=== PATIENT | male | born 1960 | race Caucasian/White ===

== ENCOUNTER 2018-01-29 08:00 | Outpatient (CLI) | payer BC ==
[2018-01-29 12:23] LABS: BASOPHILS # (AUTO) 0.1 10^3/uL (0.0-0.1); BASOPHILS % (AUTO) 1.1 %; EOSINOPHILS # (AUTO) 0.3 10^3/uL (0.0-0.7); EOSINOPHILS % (AUTO) 5.8 %; HGB - HEMOGLOBIN 15.2 g/dL (14.0-18.0); LYMPHOCYTES # (AUTO) 1.3 10^3/uL (1.5-3.5); LYMPHOCYTES % (AUTO) 21.6 %; MEAN CORPUSCULAR HEMOGLOBIN 32.2 pg (27.0-31.0); MEAN CORPUSCULAR HGB CONC 34.9 g/dL (32.0-36.0); MEAN CORPUSCULAR VOLUME 92.2 fL (80.0-94.0); MEAN PLATELET VOLUME 8.5 fL (7.4-11.4); MONOCYTES # (AUTO) 0.4 10^3/uL (0.0-1.0); NEUTROPHILS # (AUTO) 3.8 10^3/uL (1.5-6.6); NEUTROPHILS % (AUTO) 64.5 %; PLT - PLATELET COUNT 172 10^3/uL (130-450); RED CELL DISTRIBUTION WIDTH 13.3 % (12.0-15.0); WHITE BLOOD COUNT 5.9 x10^3/uL (4.8-10.8)
[2018-01-29 12:46] LABS: CRP - C-REACTIVE PROTEIN < 1.0 mg/dL (0-1.0); URIC ACID 5.8 mg/dL (2.6-7.2)
[2018-01-29 13:24] LABS: RHEUMATOID FACTOR NEGATIVE (Negative)
[2018-01-31 18:17] LABS: ANA SCREEN POSITIVE (NEGATIVE)
== END 2018-01-29 08:01 ==
LOC: LAB.WCP 08:00
PROVIDERS: ATTEND Orthopaedic Surgery
DX: M17.0 Bilateral primary osteoarthritis of knee (principal); M25.561 Pain in right knee
CPT/HCPCS: 36415; 84550; 85025; 85651; 86038; 86140; 86430

== ENCOUNTER 2018-04-11 09:40 | Outpatient (CLI) | payer BC ==
[2018-04-11 12:33] LABS: EOSINOPHILS # (AUTO) 0.3 10^3/uL (0.0-0.7); EOSINOPHILS % (AUTO) 7.2 %; HGB - HEMOGLOBIN 13.9 g/dL (14.0-18.0); LYMPHOCYTES # (AUTO) 1.4 10^3/uL (1.5-3.5); LYMPHOCYTES % (AUTO) 28.5 %; MEAN CORPUSCULAR HEMOGLOBIN 31.4 pg (27.0-31.0); MEAN CORPUSCULAR HGB CONC 34.2 g/dL (32.0-36.0); MEAN CORPUSCULAR VOLUME 91.6 fL (80.0-94.0); MEAN PLATELET VOLUME 8.6 fL (7.4-11.4); MONOCYTES # (AUTO) 0.4 10^3/uL (0.0-1.0); MONOCYTES % (AUTO) 8.5 %; NEUTROPHILS # (AUTO) 2.6 10^3/uL (1.5-6.6); NEUTROPHILS % (AUTO) 54.8 %; PLT - PLATELET COUNT 169 10^3/uL (130-450); RED BLOOD COUNT 4.44 10^6/uL (4.70-6.10); RED CELL DISTRIBUTION WIDTH 13.7 % (12.0-15.0); WHITE BLOOD COUNT 4.8 x10^3/uL (4.8-10.8)
[2018-04-11 12:53] LABS: ALBUMIN/GLOBULIN RATIO 1.5 (1.0-2.2); ALKALINE PHOSPHATASE 50 IU/L (42-121); ALT ALANINE AMINOTRANSFERASE 23 IU/L (10-60); AST ASPARTATE AMINOTRANSFERASE 26 IU/L (10-42); BILIRUBIN,TOTAL 0.7 mg/dL (0.2-1.0); BUN - BLOOD UREA NITROGEN 21 mg/dL (6-20); CALCIUM 9.3 mg/dL (8.5-10.3); CARBON DIOXIDE - CO2 27 mmol/L (21-32); CHLORIDE 106 mmol/L (101-111); CHOL/HDL RATIO 3.2 (<5.0); CHOLESTEROL 181 mg/dL; CREATININE 0.9 mg/dL (0.6-1.2); GFR - MDRD 88 (>89); GLUCOSE 100 mg/dL (70-100); HDL CHOLESTEROL 57 mg/dL; LDL CHOLESTEROL,CALCULATED 113 mg/dL; SODIUM 139 mmol/L (135-145); TOTAL PROTEIN 6.7 g/dL (6.7-8.2); VLDL CHOLESTEROL 11 mg/dL
== END 2018-04-11 23:59 | disposition home or self-care (01) ==
LOC: LAB.WCP 09:40
PROVIDERS: ATTEND Family Medicine
DX: E78.5 Hyperlipidemia, unspecified (principal); R73.01 Impaired fasting glucose; Z12.5 Encounter for screening for malignant neoplasm of prostate
CPT/HCPCS: 36415; 80053; 80061; 83721; 84153; 84443; 85025

== ENCOUNTER 2019-04-05 08:22 | Outpatient (CLI) | payer BC, OTHER ==
[2019-04-05 13:10] LABS: BASOPHILS % (AUTO) 0.8 %; EOSINOPHILS # (AUTO) 0.2 10^3/uL (0.0-0.7); EOSINOPHILS % (AUTO) 4.6 %; HGB - HEMOGLOBIN 14.4 g/dL (14.0-18.0); LYMPHOCYTES # (AUTO) 1.4 10^3/uL (1.5-3.5); MEAN CORPUSCULAR HEMOGLOBIN 30.3 pg (27.0-31.0); MEAN CORPUSCULAR HGB CONC 33.3 g/dL (32.0-36.0); MEAN PLATELET VOLUME 10.3 fL (7.4-11.4); MONOCYTES # (AUTO) 0.4 10^3/uL (0.0-1.0); MONOCYTES % (AUTO) 8.1 %; NEUTROPHILS # (AUTO) 2.8 10^3/uL (1.5-6.6); NEUTROPHILS % (AUTO) 57.7 %; PLT - PLATELET COUNT 183 10^3/uL (130-450); RED BLOOD COUNT 4.76 10^6/uL (4.70-6.10); RED CELL DISTRIBUTION WIDTH 13.5 % (12.0-15.0); WHITE BLOOD COUNT 4.8 x10^3/uL (4.8-10.8)
[2019-04-05 13:23] LABS: ALBUMIN 4.2 g/dL (3.2-5.5); ALBUMIN/GLOBULIN RATIO 1.4 (1.0-2.2); ALKALINE PHOSPHATASE 41 IU/L (42-121); ALT ALANINE AMINOTRANSFERASE 23 IU/L (10-60); AST ASPARTATE AMINOTRANSFERASE 24 IU/L (10-42); BILIRUBIN,TOTAL 0.6 mg/dL (0.2-1.0); BUN - BLOOD UREA NITROGEN 23 mg/dL (6-20); CALCIUM 9.2 mg/dL (8.5-10.3); CARBON DIOXIDE - CO2 26 mmol/L (21-32); CHLORIDE 105 mmol/L (101-111); CHOLESTEROL 224 mg/dL; GFR - MDRD 77 (>89); GLUCOSE 105 mg/dL (70-100); HDL CHOLESTEROL 56 mg/dL; LDL CHOLESTEROL,CALCULATED 149 mg/dL; LDL/HDL RATIO 2.7 (<3.6); SODIUM 139 mmol/L (135-145); TOTAL PROTEIN 7.2 g/dL (6.7-8.2); VLDL CHOLESTEROL 19 mg/dL
== END 2019-04-05 23:59 | disposition home or self-care (01) ==
LOC: LAB.WCP 08:22
PROVIDERS: ATTEND Family Medicine
DX: Z00.00 Encounter for general adult medical examination without abnormal findings (principal); Z12.5 Encounter for screening for malignant neoplasm of prostate
CPT/HCPCS: 36415; 80053; 80061; 83721; 84153; 84443; 85025

== ENCOUNTER 2019-05-23 14:22 | Outpatient (CLI) | payer BC, OTHER ==
[2019-05-23] MEDS ORDERED: GADOBUTROL 15 MMOL/15 ML VIAL ONE (14:40)
[2019-05-23] MEDS ORDERED: GADOBUTROL 15 MMOL/15 ML VIAL IVP ONE (15:21)
--- NOTE | 2019-05-23 18:02 | MRI Report ---
Reason: DIPLOPIA, MIGRAINE Procedure Date: 05/23/2019 Accession Number: [id number] / [id number] Procedure: MRI - Brain W/WO CPT Code: Preliminary Report FULL RESULT: EXAM: MRI BRAIN WITHOUT AND WITH CONTRAST EXAM DATE: 05/23/2019 03:48 PM. CLINICAL HISTORY: DIPLOPIA, MIGRAINE. COMPARISON: None. TECHNIQUE: Multiplanar, multisequence T1-weighted and fluid-sensitive MR sequences of the brain were performed before and after administration of intravenous contrast. Sequences optimized for routine evaluation. Other: None. IV Contrast: 10.5 cc Gadavist. Findings: Relevant images are indicated (image number, series number). There is no acute/subacute ischemic change in the brain. There is no hemosiderin deposition present in the brain. Limited suprahyoid neck negative. Orbital contents unremarkable. Mild scattered paranasal sinus mucosal thickening. Normal expected vascular flow voids of the major arteries, major draining veins. No significant cortical atrophy. The ventricles are not dilated. There are no suspicious marrow lesions. Trivial scattered few tiny areas of white matter disease are present bilateral wright radiata. Postcontrast imaging demonstrates no abnormal enhancement of the brain, meninges. Pituitary, midbrain, cranial cervical junction, limited upper cervical cord negative. Extraocular muscles, optic nerves, orbital apex, optic chiasm negative. Impressions: 1. No acute/subacute ischemic change. 2. Trivial nonspecific white matter disease present, could be related to history of headaches. 3. Unremarkable orbits. 4. Postcontrast imaging negative. 5. Mild diffuse paranasal sinus mucosal thickening. RADIA
== END 2019-05-23 14:23 | disposition home or self-care (01) ==
LOC: DI 14:22
PROVIDERS: ATTEND Family Medicine
DX: H53.2 Diplopia (principal); G43.909 Migraine, unspecified, not intractable, without status migrainosus; R90.82 White matter disease, unspecified
CPT/HCPCS: 70553; A9585

== ENCOUNTER 2019-06-07 14:30 | Outpatient (CLI) | payer OTHER ==
--- NOTE | 2019-06-09 04:58 | Ultrasound Report ---
Reason: VERTIGO, DIPLOPIA Procedure Date: 06/07/2019 Accession Number: [id number] / [id number] Procedure: US - Carotid Doppler Complete CPT Code: Final Report FULL RESULT: EXAM: BILATERAL CAROTID AND VERTEBRAL ARTERY DUPLEX DOPPLER ULTRASOUND: EXAM DATE: 06/07/2019 06:00 PM CLINICAL HISTORY: Vertigo, diplopia. COMPARISON: None. TECHNIQUE: Grayscale imaging, color Doppler, and duplex spectral Doppler were used to evaluate the carotid and vertebral arteries bilaterally. Static images were obtained. FINDINGS: Irregular calcified carotid plaque is seen bilaterally. There are high bifurcations. Normal antegrade flow is present in bilateral vertebral arteries. VELOCITIES (cm/sec): Right CCA mid: PSV 77.5 cm/sec CCA dist: PSV 52.2 cm/sec ICA prox: PSV 57.1 cm/sec, EDV 16.8 cm/sec ICA mid: PSV 61.0 cm/sec, EDV 24 cm/sec ICA dist: PSV 66 cm/sec, EDV 22 cm/sec ECA: PSV 87.1 cm/sec Vert: PSV 64.2 cm/sec ICA/CCA: 0.8 Left CCA mid: PSV 65.2 cm/sec CCA dist: PSV 66 cm/sec ICA prox: PSV 46 cm/sec, EDV 15 cm/sec ICA mid: PSV 57 cm/sec, EDV 22 cm/sec ICA dist: PSV 59 cm/sec, EDV 21 cm/sec ECA: PSV 70 cm/sec Vert: PSV 61 cm/sec ICA/CCA: 0.9 ICA diameter stenosis: Right: <50% by velocity and <70% by NASCET criteria. Left: <50% by velocity and <70% by NASCET criteria. IMPRESSION: 1. Irregular calcified bilateral carotid artery plaquing. 2. In the right carotid artery there are no elevated carotid artery velocities to suggest hemodynamically significant stenosis. 3. In the left carotid artery there are no elevated carotid artery velocities to suggest hemodynamically significant stenosis. 4. Normal antegrade flow is present in bilateral vertebral arteries. General Recommendations: Stenosis =50% ICA - Follow-up ultrasound 6-12 months Stenosis <50% ICA - High Risk Patient with plaque - Follow-up ultrasound 1-2 years Normal Study but High Risk Patient - Follow-up ultrasound 3-5 years Management recommendations and diagnostic criteria are based on current IAC endorsed standards in Carotid Artery Stenosis: Grayscale and Doppler Ultrasound Diagnosis. Validated velocity measurements with angiographic measurements and velocity criteria are extrapolated from diameter data as defined by the Society of Radiologists in Ultrasound Consensus Conference Radiology 2003; 229;340-346. RADIA
== END 2019-06-07 14:31 | disposition home or self-care (01) ==
LOC: DI 14:30
PROVIDERS: ATTEND Family Medicine
DX: I65.23 Occlusion and stenosis of bilateral carotid arteries (principal); R42 Dizziness and giddiness; H53.2 Diplopia; I77.810 Thoracic aortic ectasia
CPT/HCPCS: 93306; 93880

== ENCOUNTER 2019-08-31 15:02 | Emergency (ER) | payer OTHER ==
[2019-08-31] MEDS ORDERED: CYCLOBENZAPRINE 10 MG TABLET PO STA (16:43)
[2019-08-31] MEDS ORDERED: oxyCODONE 5 MG TABLET PO STA (16:43)
--- NOTE | 2019-08-31 16:45 | ED Physician Documentation ---
History of Present Illness - Stated complaint Stated Complaint: NECK PX/CHILLS/VELEZ - Chief complaint Chief Complaint: General - History obtained from History obtained from: Patient - History of Present Illness Timing: How many weeks ago (1) Pain level max: 8 Pain level now: 8 - Additonal information Additional information: 58-year-old male presents the emergency department stating that he sided neck pain for the past week. Gradually worsening. States feels like a spasm. Worse with movement and better with rest. No fevers. No numbness or tingling. Denies any trauma. Review of Systems Ten Systems: 10 systems reviewed and negative Constitutional: denies: Fever, Chills Cardiac: denies: Chest pain / pressure, Palpitations Respiratory: denies: Dyspnea, Cough GI: denies: Nausea, Vomiting, Diarrhea Musculoskeletal: denies: Back pain Neurologic: denies: Focal weakness, Numbness, Confused, Altered mental status, Head injury, LOC PD PAST MEDICAL HISTORY - Past Medical History Past Medical History: Yes Cardiovascular: High cholesterol Respiratory: None Neuro: None Endocrine/Autoimmune: None GI: None : None HEENT: None Psych: None Musculoskeletal: None Derm: None - Past Surgical History Past Surgical History: No - Present Medications Home Medications: Ambulatory Orders Medication Instructions Recorded Confirmed Aspirin [Aspirin EC] 81 mg PO 08/31/19 Azelastine HCl 137 mcg NS 08/31/19 Cyclobenzaprine [Flexeril] 10 mg PO TID PRN #14 tablet 08/31/19 Fexofenadine HCl 180 mg PO 08/31/19 Fluticasone 44 Mcg [Flovent] 1 puffs INH BID 08/31/19 08/31/19 Lysine [l-Lysine] 500 mg PO 08/31/19 Meloxicam 15 mg PO 08/31/19 Oxycodone HCl 5 - 10 mg PO Q6H PRN #10 tablet 08/31/19 Rosuvastatin Calcium 5 mg PO 08/31/19 Turmeric 400 mg PO 08/31/19 Verapamil [Calan] 80 mg PO DAILY 08/31/19 08/31/19 - Allergies Allergies/Adverse Reactions: Allergies Allergy/AdvReac Type Severity Reaction Status Date / Time Penicillins Allergy Hives Verified 08/31/19 15:10 - Social History Does the pt smoke?: No Smoking Status: Never smoker - Immunizations Immunizations are current?: Yes - POLST Patient has POLST: No PD ED PE NORMAL - Vitals Vital signs reviewed: Yes - General General: Alert and oriented X 3, No acute distress, Well developed/nourished - HEENT HEENT: Moist mucous membranes - Neck Neck: Other (Paraspinal muscle spasm on the left. Neurovascular intact. No bruit. No midline tenderness to palpation. 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 Will place on muscle relaxants for home. He is well-appearing, nontoxic. Afebrile. No evidence of meningitis. No evidence of subarachnoid hemorrhage. No evidence of cervical spine fracture or dislocation. Patient counseled regarding signs and symptoms for which I believe and urgent re-evaluation would be necessary. Patient with good understanding of and agreement to plan and is comfortable going home at this time This document was made in part using voice recognition software. While efforts are made to proofread this document, sound alike and grammatical errors may occur. Departure - Departure Disposition: 01 Home, Self Care Clinical Impression: Neck muscle spasm Condition: Good Instructions: ED Spasm Neck No Injury Follow-Up: Marcos Garcia MD [Primary Care Provider] - Within 1 week Prescriptions: Cyclobenzaprine [Flexeril] 10 mg PO TID PRN #14 tablet PRN Reason: Spasms Oxycodone HCl 5 - 10 mg PO Q6H PRN #10 tablet PRN Reason: pain Comments: Return if you worsen. Follow-up with your doctor for further care. Continue to gently stretch your neck at home. The more you hold that in one position, the worst this will get. Do not drink alcohol or drive while on narcotic pain medicine. Note that many narcotic pain relievers also contain tylenol/acetaminophen. Pl ease ensure that your total dose of acetaminophen from all sources does not exceed 3 grams (3000mg) per day. You may constipated on this medication, take a stool softener such as "Colace" twice a day while you are on it. Also recommend a uujh-agw-foghmhj laxative such as senna or MiraLAX any day that you do not have a bowel movement. If you received narcotic pain medication in the emergency department, do not drive or operate machinery for the next 24 hours. Discharge Date/Time: 08/31/19 17:11
[2019-08-31 17:11] VITALS: BP 133/89
== END 2019-08-31 17:11 | disposition home or self-care (01) ==
LOC: ED 15:02
DX: M62.838 Other muscle spasm (principal); M54.2 Cervicalgia; Z79.82 Long term (current) use of aspirin
CPT/HCPCS: 99282; 99284; A9270

== ENCOUNTER 2020-02-23 22:17 | Emergency (ER) | payer OTHER ==
[2020-02-23 22:42] LABS: BASOPHILS # (AUTO) 0.1 10^3/uL (0.0-0.1); BASOPHILS % (AUTO) 0.9 %; EOSINOPHILS # (AUTO) 0.4 10^3/uL (0.0-0.7); EOSINOPHILS % (AUTO) 6.2 %; HGB - HEMOGLOBIN 15.1 g/dL (14.0-18.0); LYMPHOCYTES # (AUTO) 2.1 10^3/uL (1.5-3.5); LYMPHOCYTES % (AUTO) 35.3 %; MEAN CORPUSCULAR HGB CONC 33.7 g/dL (32.0-36.0); MEAN PLATELET VOLUME 9.5 fL (7.4-11.4); MONOCYTES # (AUTO) 0.6 10^3/uL (0.0-1.0); MONOCYTES % (AUTO) 9.8 %; NEUTROPHILS # (AUTO) 2.8 10^3/uL (1.5-6.6); NEUTROPHILS % (AUTO) 47.3 %; PLT - PLATELET COUNT 169 10^3/uL (130-450); RED BLOOD COUNT 4.87 10^6/uL (4.70-6.10); WHITE BLOOD COUNT 5.8 x10^3/uL (4.8-10.8)
[2020-02-23 22:53] LABS: ALBUMIN 4.5 g/dL (3.2-5.5); ALBUMIN/GLOBULIN RATIO 1.5 (1.0-2.2); BILIRUBIN,TOTAL 0.6 mg/dL (0.2-1.0); CALCIUM 9.3 mg/dL (8.5-10.3); TOTAL PROTEIN 7.5 g/dL (6.7-8.2)
--- NOTE | 2020-02-23 23:05 | ED Physician Documentation ---
PD HPI CHEST PAIN - Stated complaint Stated Complaint: CP/BACK PX - Chief complaint Chief Complaint: Cardiac - History obtained from History obtained from: Patient - History of Present Illness Timing - onset: How many hours ago (1) Timing - onset during: Rest Timing - details: Abrupt onset Pain level max: 4 Pain level now: 0 Quality: Pain Location: Left chest Radiation: Back Improved by: Nothing Worsened by: Other (no exacerbating factors) Associated symptoms: Nausea (mild). No: Shortness of air, Diaphoresis, Vomiting, Feeling faint / dizzy, General Weakness, Palpitations Recently seen: Not recently seen (c/o left chest pain that started 1 hour [employer] at home at rest, radiating to back associated with mild nausea. He is asymptomatic by the time of this presentation) Review of Systems Constitutional: denies: Fever Cardiac: reports: Chest pain / pressure. denies: Palpitations, Pedal edema, Calf pain Respiratory: reports: Reviewed and negative GI: reports: Nausea (mild, resolved). denies: Abdominal Pain, Vomiting, Constipation, Diarrhea Musculoskeletal: denies: Extremity swelling PD PAST MEDICAL HISTORY - Past Medical History Cardiovascular: High cholesterol Respiratory: None Neuro: None Endocrine/Autoimmune: None GI: None : None HEENT: None Psych: None Musculoskeletal: None Derm: None - Past Surgical History Past Surgical History: Yes General: Hiatal hernia repair Ortho: Other HEENT: Tonsil/Adenoidectomy, Other - Present Medications Home Medications: Ambulatory Orders Medication Instructions Recorded Confirmed Aspirin [Aspirin EC] 81 mg PO 08/31/19 Azelastine HCl 137 mcg NS 08/31/19 Cyclobenzaprine [Flexeril] 10 mg PO TID PRN #14 tablet 08/31/19 Fexofenadine HCl 180 mg PO 08/31/19 Fluticasone 44 Mcg [Flovent] 1 puffs INH BID 08/31/19 08/31/19 Lysine [l-Lysine] 500 mg PO BID 08/31/19 Meloxicam 15 mg PO 08/31/19 Rosuvastatin Calcium 5 mg PO 08/31/19 Turmeric 400 mg PO 08/31/19 Verapamil [Calan] 125 mg PO DAILY 08/31/19 08/31/19 - Allergies Allergies/Adverse Reactions: Allergies Allergy/AdvReac Type Severity Reaction Status Date / Time Penicillins Allergy Hives Verified 02/23/20 22:21 - Social History Does the pt smoke?: No Smoking Status: Never smoker Does the pt drink ETOH?: Yes ETOH Use: Wine, Beer, Liquor Does the pt have substance abuse?: No - Immunizations Immunizations are current?: Yes - POLST Patient has POLST: No PD ED PE NORMAL - Vitals Vital signs reviewed: Yes - General General: Alert and oriented X 3, No acute distress, Well developed/nourished - Neck Neck: No JVD - Cardiac Cardiac: RRR, No murmur, No gallop, No rub - Respiratory Respiratory: No respiratory distress, Clear bilaterally - Abdomen Abdomen: Soft, Non tender - Extremities Extremities: No edema Results - Vitals Vitals: Vital Signs - 24 hr 02/23/20 02/23/20 02/23/20 22:21 22:36 22:55 Temperature 36.6 C 36.6 C 36.5 C Heart Rate 58 L 58 L 57 L Respiratory 16 16 14 Rate Blood Pressure 155/77 H 155/77 H 121/76 O2 Saturation 99 99 95 02/23/20 02/23/20 02/24/20 23:25 23:30 00:00 Temperature 36.5 C 36.7 C 36.6 C Heart Rate 59 L 63 63 Respiratory 14 14 14 Rate Blood Pressure 121/80 123/83 H 126/82 H O2 Saturation 96 98 98 02/24/20 02/24/20 02/24/20 00:30 01:00 01:18 Temperature 36.7 C 36.6 C 36.6 C Heart Rate 53 L 55 L 55 L Respiratory 14 14 14 Rate Blood Pressure 121/72 130/83 H 130/83 H O2 Saturation 98 98 98 Oxygen O2 Source Room air - EKG (time done) No standard instances Rate: Rate (enter#) (52) Rhythm: NSR [place]: LAD Intervals: Normal IN, Other (NSIVCD. rSR' V2) Ischemia: Normal ST segments - Labs Labs: Laboratory Tests 02/23/20 02/23/20 02/23/20 22:36 22:36 22:36 WBC 5.8 RBC 4.87 Hgb 15.1 Hct 44.8 MCV 92.0 MCH 31.0 MCHC 33.7 RDW 13.0 Plt Count 169 MPV 9.5 Neut # (Auto) 2.8 Lymph # (Auto) 2.1 Wright # (Auto) 0.6 Eos # (Auto) 0.4 Baso # (Auto) 0.1 Absolute Nucleated RBC 0.00 Nucleated RBC % 0.0 Sodium 138 Potassium 3.8 Chloride 103 Carbon Dioxide 26 Anion Gap 9.0 BUN 17 Creatinine 1.0 Estimated GFR (MDRD) 77 L Glucose 112 H Calcium 9.3 Total Bilirubin 0.6 AST 26 ALT 28 Alkaline Phosphatase 48 Troponin I High Sens 4.7 Total Protein 7.5 Albumin 4.5 Globulin 3.0 Albumin/Globulin Ratio 1.5 Lipase 36 - Rads (name of study) chest xray Radiology: Prelim report reviewed, See rad report PD MEDICAL DECISION MAKING - ED course Complexity details: reviewed results, re-evaluated patient, considered differential, d/w patient ED course: remained asymptomatic during ED stay Departure - Departure Disposition: 01 Home, Self Care Clinical Impression: Chest pain Qualifiers: Chest pain type: unspecified Qualified Code(s): R07.9 - Chest pain, unspecified Condition: Good Instructions: ED Chest Pain Atypical Unkn Cause Follow-Up: Marcos Garcia MD [Primary Care Provider] - (Call in the morning to arran steve for next available appointment) Discharge Date/Time: 02/24/20 01:19
[2020-02-24 01:18] VITALS: BP 130/83
--- NOTE | 2020-02-24 09:09 | XRAY Report ---
PROCEDURE: Chest 1 View X-Ray INDICATIONS: Chest pain TECHNIQUE: One view of the chest was acquired. COMPARISON: None FINDINGS: Surgical changes and devices: None. Lungs and pleura: No pleural effusions or pneumothorax. Lungs are clear. Mediastinum: Mediastinal contours appear normal. Heart size is normal. Bones and chest wall: No suspicious bony lesions. Overlying soft tissues appear unremarkable. IMPRESSION: No acute cardiopulmonary disease process. Reviewed by: Kimberly Butterfield MD, PhD on 02/24/2020 9:08 AM [facility] Approved by: Kimberly Butterfield MD, PhD on 02/24/2020 9:08 AM [facility] Station ID: [id number]
== END 2020-02-24 01:19 | disposition home or self-care (01) ==
LOC: ED 22:17
DX: R07.9 Chest pain, unspecified (principal); R11.0 Nausea; Z79.82 Long term (current) use of aspirin
CPT/HCPCS: 36415; 71045; 80053; 83690; 84484; 85025; 93005; 99284